=== PATIENT | male | born 1955 | race Caucasian/White ===

== ENCOUNTER 2019-06-20 09:20 | Day surgery (SDC) | payer OTHER ==
[~2019-06-20] VITALS: Ht 167.6 cm; Wt 74.8 kg
== END 2019-06-20 13:00 | disposition left against medical advice (07) ==
LOC: MOR 09:20 → MMU 10:23 → MOR 13:00
PROVIDERS: ATTEND Internal Medicine Gastroenterology
DX: Z12.11 Encounter for screening for malignant neoplasm of colon (principal)